=== PATIENT | male | born 1955 | race Caucasian/White ===

== ENCOUNTER → 2024-02-19 07:22 | Outpatient (REF) | payer MEDICARE, OTHER, SELFPAY | LOC: MRI 07:22 | PROVIDERS: ATTENDING PHYSICIAN Physician Assistant Surgical; FAMILY PHYSICIAN Family Medicine; OTHER PHYSICIAN Chiropractor | DX: M62.9 Disorder of muscle, unspecified (principal); M54.50 Low back pain, unspecified | CPT/HCPCS: 72148 ==